=== PATIENT | male | born 1945 | race Caucasian/White ===

== ENCOUNTER → 2018-01-24 | Outpatient (CLI) | payer MEDICARE ==
--- NOTE | 2018-01-25 09:36 | RSPPFT ---
DATE OF PROCEDURE: 01/24/18 COMMENTS: VOLUMES DYNAMIC: FVC low normal; FEV1 mildly reduced. STATIC: RV mildly increased; FRC and TLC normal. FLOWS: FEV1% moderately reduced; FEF 25-75 severely reduced. DIFFUSION: Normal. FLOW VOLUME LOOP: Pattern of variable intrathoracic airways obstruction. IMPRESSION: Moderate obstructive ventilatory defect with no reduction in diffusion. There is also mild hyperinflation. There is minimal improvement post-bronchodilator.
== END ==
LOC: PHRSP 07:41
PROVIDERS: ATTEND Internal Medicine
DX: J44.9 Chronic obstructive pulmonary disease, unspecified (principal)
CPT/HCPCS: 94060; 94618; 94726; 94729